=== PATIENT | female | born 1985 | race American Indian/Alaskan Native ===

== ENCOUNTER 2020-06-29 15:52 | Emergency (ER) | payer MEDICAID ==
[2020-06-29 15:58] VITALS: BP 121/79
[2020-06-29] MEDS ORDERED: diphenhydrAMINE 50 MG/ML VIAL IV ONE (18:19)
[2020-06-29] MEDS ORDERED: SODIUM CHLORIDE 0.9% 1000 ML 1,000 ML IV ONE (18:19)
[2020-06-29] MEDS ORDERED: METOCLOPRAMIDE 10 MG/2 ML INJ IV ONE (18:19)
--- NOTE | 2020-06-29 19:29 | Emergency Department Report ---
ED General Adult HPI - General Chief complaint: Nausea/Vomiting/Diarrhea Stated complaint: 6 WEEKS , VOMITING Time Seen by Provider: 06/29/20 18:12 Source: patient Mode of arrival: Ambulatory Limitations: No Limitations - History of Present Illness Initial comments: Patient is a 35-year-old female presents emergency room with complaints of nause a and vomiting that began 3 days ago. She states that she has not been able to tolerate p.o. intake. Patient states that she is currently 6 weeks . She states that she has had her confirmed through the health department and the resource clinic. She states that she has her first appointment with [facility] on July 04. She denies any vaginal bleeding, abdominal pain, dysuria, diarrhea, fever. She does not report any vaginal discharge or irritation. She denies any sick contacts. She denies any past medical history. She states has an allergy to penicillin. She states her last menstrual cycle was May 08. /P: 2/A: 1 - Related Data Previous Rx's Medication Instructions Recorded Last Taken Type Metoclopramide [Reglan] 10 mg PO Q8HR PRN #12 tab 06/29/20 Unknown Rx cephALEXin [Keflex] 500 mg PO BID 7 Days #14 cap 06/29/20 Unknown Rx diphenhydrAMINE [Benadryl CAP] 25 mg PO Q6HR PRN #12 capsule 06/29/20 Unknown Rx Allergies Allergy/AdvReac Type Severity Reaction Status Date / Time No Known Allergies Allergy Unverified 06/29/20 15:59 ED Review of Systems ROS: Stated complaint: 6 WEEKS , VOMITING Other details as noted in HPI Comment: All other systems reviewed and negative ED Past Medical Hx - Past Medical History Previous Medical History?: No - Surgical History Past Surgical History?: Yes Additional Surgical History: D&C - Medications Home Medications: Home Medications Medication Instructions Recorded Confirmed Last Taken Type Metoclopramide [Reglan] 10 mg PO Q8HR PRN #12 tab 06/29/20 Unknown Rx cephALEXin [Keflex] 500 mg PO BID 7 Days #14 cap 06/29/20 Unknown Rx diphenhydrAMINE [Benadryl CAP] 25 mg PO Q6HR PRN #12 capsule 06/29/20 Unknown Rx ED Physical Exam - General Limitations: No Limitations General appearance: alert, in no apparent distress - Head Head exam: Present: atraumatic, normocephalic - Eye Eye exam: Present: normal appearance - ENT ENT exam: Present: mucous membranes moist - Respiratory Respiratory exam: Present: normal lung sounds bilaterally. Absent: respiratory distress, wheezes, rales, rhonchi, stridor, chest wall tenderness, accessory muscle use, decreased breath sounds, prolonged expiratory - Cardiovascular Cardiovascular Exam: Present: regular rate, normal rhythm, normal heart sounds. Absent: systolic murmur, diastolic murmur, rubs, gallop - GI/Abdominal GI/Abdominal exam: Present: soft, normal bowel sounds. Absent: distended, tenderness, guarding, rebound, rigid - Neurological Exam Neurological exam: Present: alert, oriented X3 - Psychiatric Psychiatric exam: Present: normal affect, normal mood - Skin Skin exam: Present: warm, dry, intact ED Course Vital Signs 06/29/20 15:58 Temperature 99.3 F Pulse Rate 79 Respiratory 16 Rate Blood Pressure 121/79 [Right] O2 Sat by Pulse 100 Oximetry ED Medical Decision Making - Medical Decision Making Patient is a 35-year-old female presents emergency room with complaints of nausea and vomiting that began 3 days ago. She states that she has not been able to tolerate p.o. intake. Patient states that she is currently 6 weeks . She states that she has had her confirmed through the health department and the resource clinic. She states that she has her first appointment with [facility] on July 04. She denies any vaginal bleeding, abdominal pain, dysuria, diarrhea, fever. She does not report any vaginal discharge or irritation. She denies any sick contacts. She denies any past medical history. She states has an allergy to penicillin. She states her last menstrual cycle was May 08. /P: 2/A: 1. vitals are normal. on exam: no abd ttp, no guarding, no rebound, no rigidity. I was informed at 7:30 PM that the lab was not able to see orders, nothing in the computer was crossing over to the lab, I ordered patient's lab work at 6:19 PM. The elementary school counselor advised me that she collected the lab work at 1930. I called the lab at 2030 and he states that he has not yet run the lab work or the urine sample. labs are stable. UA shows evidence of mild UTI. pt given IVF and anti-emetics and symptoms significantly improved. pt was able to tolerate PO intake. Discussed all results with patient and answered questions. Patient given prescription for Keflex, Reglan, Benadryl. Advised patient Please take medication as prescribed. Increase your water intake. Please follow-up with your MEASURER MACHINE. Return to emergency room for any new or worsening symptoms. - Differential Diagnosis hyperemesis, UTI, morning sickness, dehydration, TSERING Critical care attestation.: If time is entered above; I have spent that time in minutes in the direct care of this critically ill patient, excluding procedure time. ED Disposition Clinical Impression: Nausea/vomiting in UTI (urinary tract infection) Qualifiers: Urinary tract infection type: acute cystitis Hematuria presence: without hematuria Qualified Code(s): N30.00 - Acute cystitis without hematuria Disposition: TO HOME OR SELFCARE Is pt being admited?: No Does the pt Need Aspirin: No Condition: Stable Instructions: Hyperemesis Gravidarum (ED), Urinary Tract Infection in Women (ED), Acute Nausea and Vomiting (ED) Additional Instructions: Please take medication as prescribed. Increase your water intake. Please follow-up with your MEASURER MACHINE. Return to emergency room for any new or worsening symptoms. Prescriptions: diphenhydrAMINE [Benadryl CAP] 25 mg PO Q6HR PRN #12 capsule PRN Reason: Nausea And Vomiting cephALEXin [Keflex] 500 mg PO BID 7 Days #14 cap Metoclopramide [Reglan] 10 mg PO Q8HR PRN #12 tab PRN Reason: Nausea And Vomiting Referrals: PRIMARY CARE, [Primary Care Provider] - 2-3 Days [facility] [Provider Group] - 2-3 Days Time of Disposition: 21:15 Print Language: VINCENTIAN
[2020-06-29] MEDS ORDERED: ONDANSETRON 4 MG/2 ML INJ IV ONE (21:19)
[2020-06-29 21:39] LABS: Alanine Aminotransferase 16 units/L (7-56); Albumin 4.2 g/dL (3.9-5); BUN/Creatinine Ratio 10; Blood Urea Nitrogen 6 mg/dL (7-17); Calcium 8.4 mg/dL (8.4-10.2); Hemolysis Index 3
[2020-06-29 23:31] LABS: Hematocrit 33.1 % (30.3-42.9); Hemoglobin 11.3 gm/dl (10.1-14.3); Mean Corpuscular HGB Conc 34 % (30-34); Mean Corpuscular Volume 87 fl (79-97); Platelet Count 299 K/mm3 (140-440); Red Blood Count 3.79 M/mm3 (3.65-5.03); Red Cell Distribution Width 13.6 % (13.2-15.2)
[2020-06-29 23:32] LABS: Basophils % (Auto) 0.3 % (0.0-1.8); Eosinophils # (Auto) 0.1 K/mm3 (0.0-0.4); Eosinophils % (Auto) 1.1 % (0.0-4.3); Lymphocytes # (Auto) 1.4 K/mm3 (1.2-5.4); Lymphocytes % (Auto) 16.4 % (13.4-35.0); Monocytes # (Auto) 0.7 K/mm3 (0.0-0.8); Monocytes % (Auto) 7.8 % (0.0-7.3)
== END 2020-06-29 21:32 | disposition home or self-care (01) ==
LOC: ED 15:52
DX: O23.41 Unspecified infection of urinary tract in pregnancy, first trimester (principal); O21.8 Other vomiting complicating pregnancy; Z3A.01 Less than 8 weeks gestation of pregnancy; Z98.890 Other specified postprocedural states; Z79.899 Other long term (current) drug therapy
CPT/HCPCS: 36415; 80053; 83690; 84702; 85025; 87086; 96361; 96374; 96375; 99283; J1200; J2405; J2765; J7030; 87076; 87186

== ENCOUNTER 2020-11-09 10:18 | Outpatient (CLI) | payer MEDICAID ==
[2020-11-09 11:40] VITALS: BP 112/57
== END 2020-11-09 11:45 | disposition home or self-care (01) ==
LOC: TRG 10:18 → APU 10:20 → TRG 11:45
PROVIDERS: ATTEND Obstetrics & Gynecology
DX: O12.02 Gestational edema, second trimester (principal); Z3A.23 23 weeks gestation of pregnancy
CPT/HCPCS: 59025

== ENCOUNTER 2020-12-02 18:39 | Observation (INO) | payer MEDICAID ==
[2020-12-03 06:24] VITALS: BP 121/70
== END 2020-12-03 06:54 | disposition left against medical advice (07) ==
LOC: TRG 18:39 → LD 18:50
PROVIDERS: ADMIT Obstetrics & Gynecology; ATTEND Obstetrics & Gynecology
DX: O13.3 Gestational [pregnancy-induced] hypertension without significant proteinuria, third trimester (principal); Z3A.29 29 weeks gestation of pregnancy; Z98.891 History of uterine scar from previous surgery
CPT/HCPCS: 59025; G0378

== ENCOUNTER 2021-01-18 16:11 | Inpatient (IN) | payer MEDICAID ==
[2021-01-18] MEDS ORDERED: LACTATED RINGERS 2,000 ML ONE (17:14)
[2021-01-18] MEDS ORDERED: OXYTOCIN DRIP 30,000 MILLIUNITS/500 ML BAG IV ONE (17:14)
[2021-01-18] MEDS: LACTATED RINGERS 1,000 ML IV SCH (17:17)
[2021-01-18] MEDS ORDERED: FAMOTIDINE 20 MG/2 ML INJ IV ONE (17:26)
[2021-01-18] MEDS ORDERED: METOCLOPRAMIDE 10 MG/2 ML INJ IV ONE (17:26)
[2021-01-18] MEDS ORDERED: BICITRA ORAL LIQD 30ML PO ONE (17:26)
--- NOTE | 2021-01-18 17:57 | Anesthesia Day of Surgery ---
Anesthesia Day of Surgery - Day of Surgery Patient Examined: Yes Patient H&P Reviewed: Yes Patient is NPO: Yes Beta Blockers: Yes Cardiac Clearance: No Pulmonary Clearance: No Fernando's Test: N/A
[2021-01-18 17:59] LABS: Basophils % (Auto) 0.5 % (0.0-1.8); Eosinophils % (Auto) 0.5 % (0.0-4.3); Hematocrit 37.5 % (30.3-42.9); Hemoglobin 13.2 gm/dl (10.1-14.3); Lymphocytes # (Auto) 1.5 K/mm3 (1.2-5.4); Lymphocytes % (Auto) 16.4 % (13.4-35.0); Mean Corpuscular HGB Conc 35 % (30-34); Mean Corpuscular Volume 86 fl (79-97); Monocytes # (Auto) 0.9 K/mm3 (0.0-0.8); Monocytes % (Auto) 10.1 % (0.0-7.3); Platelet Count 239 K/mm3 (140-440); Red Blood Count 4.38 M/mm3 (3.65-5.03)
[2021-01-18] MEDS ORDERED: GENTAMICIN/NS 120MG/100ML 120 MG/100 ML BAG IV NR (17:59)
[2021-01-18] MEDS ORDERED: OXYTOCIN DRIP 30 UNITS/500 ML BAG IV SCH (18:00)
[2021-01-18] MEDS ORDERED: ceFAZolin/Water 2 GM/20 ML 2 GM/20 ML SYRINGE IV NR (18:00)
[2021-01-18] MEDS ORDERED: ONDANSETRON 4 MG/2 ML INJ IV PRN (18:01)
[2021-01-18] MEDS ORDERED: NALOXONE 0.4 MG/1 ML INJ IV PRN (18:01)
[2021-01-18] MEDS ORDERED: HYDROmorphone 1 MG/1 ML INJ IV PRN (18:01)
--- NOTE | 2021-01-18 18:01 | Anesthesia Consultation ---
Anesthesia Consult and Med Hx Date of service: 01/18/21 - Airway Anesthetic Teeth Evaluation: Good, Poor ROM Head & Neck: Adequate Mental/Hyoid Distance: Adequate Mallampati Class: Class III Intubation Access Assessment: Probably Good - Pulmonary Exam CTA: Yes - Cardiac Exam Cardiac Exam: RRR - Pre-Operative Health Status ASA Pre-Surgery Classification: ASA3 Proposed Anesthetic Plan: Spinal - Pre-Anesthesia Comment Pre-Anesthesia Comments: csection x2 2008, 2012, D/C, teeth extraction - Pulmonary Hx Smoking: Yes (quit 1yr) Hx Asthma: No Hx Respiratory Symptoms: No SOB: Yes (with ) COPD: No Home Oxygen Therapy: No Hx Pneumonia: No Hx Sleep Apnea: No - Cardiovascular System Hx Hypertension: Yes (2012) Hx Coronary Artery Disease: No Hx Heart Attack/AMI: No Hx Angina: No Hx Percutaneous Transluminal Coronary Angioplasty (PTCA): No Hx Cardia Arrhythmia: No Hx Pacemaker: No Hx Internal Defibrillator: No Hx Valvular Heart Disease: No Hx Heart Murmur: No Hx Peripheral Vascular Disease: No - Central Nervous System Hx Neuromuscular Disorder: No Hx Seizures: No CVA: No Hx Back Pain: Yes Hx Psychiatric Problems: No - Gastrointestinal Hx Ulcer: No Hx Gastroesophageal Reflux Disease: Yes - Endocrine Hx Renal Disease: No Hx End Stage Renal Disease: No Hx Cirrhosis: No Hx Liver Disease: No Hx Insulin Dependent Diabetes: No Hx Non-Insulin Dependent Diabetes: No Hx Thyroid Disease: No Hx Hypothyroidism: No Hx Hyperthyroidism: No - Hematic Hx Anemia: Yes Hx Sickle Cell Disease: Yes (Trait) - Other Systems Hx Alcohol Use: No Hx Substance Use: No Hx Cancer: No Hx Obesity: Yes
[2021-01-18] MEDS ORDERED: ONDANSETRON 4 MG/2 ML INJ ONE ×2 (18:12)
[2021-01-18] MEDS ORDERED: MAGNESIUM SULFATE 4 GM/100 ML BAG IV ONE ×2 (18:17→20:50)
--- NOTE | 2021-01-18 18:23 | History and Physical Report ---
History of Present Illness Date of admission: 01/18/21 16:11 Chief complaint: PreEclampsia with SF History of present illness: 36yo at 36w3d presents from [facility] for delivery. complicated by gHTN-elevations noted at outpatient evaluation with the addition of persistent headache precluded the recommendation to proceed with delivery. also complicated by morbid obesity, anemia, sickle cell trait, macrosomia and prior delivery x2. On evaluation she denies headache, RUQ pain, changes to vision. She has no complaints. 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 Family/Genetic History: none Social history: no significant social history - Obstetrical History Expected Date of Delivery: 02/12/21 Actual Gestation: 36 Week(s) 3 Day(s) : 3 Medications and Allergies Allergies Allergy/AdvReac Type Severity Reaction Status Date / Time Penicillins Allergy Rash Verified 11/09/20 11:54 Home Medications Medication Instructions Recorded Confirmed Last Taken Type One Daily Tablet 1 tab PO DAILY 01/18/21 01/18/21 01/18/21 History Active Meds: Active Medications Hydromorphone HCl (Hydromorphone 1 Mg/1 Ml Inj) 0.5 mg IV Q5M PRN PRN Reason: BREAK Stop: 01/18/21 23:59 Lactated Ringer's (Lactated Ringers) 1,000 mls @ 2,250 mls/hr IV PREOP HAILEE Stop: 01/19/21 17:57 Last Admin: 01/18/21 17:17 Dose: 999 mls/hr Documented by: Oxytocin/Sodium Chloride (Pitocin/Ns 30 Unit/500ml) 30 units in 500 mls @ 0 mls/hr IV TITR HAILEE; Protocol Clindamycin HCl (Cleocin 900 Mg/50 Ml) 900 mg in 50 mls @ 100 mls/hr IV PREOP NR; Protocol Stop: 01/18/21 23:59 Last Admin: 01/18/21 18:10 Dose: 100 mls/hr Documented by: Gentamicin Sulfate/Sodium Chloride (Gentamicin/Ns 120mg/100ml) 120 mg in 100 mls @ 200 mls/hr IV PREOP NR; Protocol Stop: 01/18/21 23:59 Magnesium Sulfate (Magnesium Sulfate 40gm/1000ml) 40 gm in 1,000 mls @ 50 mls/hr IV DIRECT HAILEE Magnesium Sulfate (Magnesium Sulfate 4gm/100ml) 4 gm in 100 mls @ 300 mls/hr IV ONCE ONE Stop: 01/18/21 18:36 Naloxone HCl (Naloxone 0.4 Mg/1 Ml Inj) 0.2 mg IV Q2MIN PRN PRN Reason: Res Rate </= 8 or 02 SAT < 92% Ondansetron HCl (Ondansetron 4 Mg/2 Ml Inj) 4 mg IV Q8H PRN PRN Reason: Nausea And Vomiting Sodium Chloride (Sodium Chloride 0.9% 10 Ml Flush Syringe) 10 ml IV PRN NR Stop: 01/19/21 18:59 Review of Systems Constitutional: no fever, no chills Cardiovascular: no chest pain, no syncope, no shortness of breath Respiratory: no cough, no shortness of breath, no dyspnea on exertion Gastrointestinal: no abdominal pain - Vital Signs Vital signs: Vital Signs Pulse BP 90 137/93 01/18/21 16:59 01/18/21 16:59 Temp Pulse Resp BP Pulse Ox 98.8 F 85 18 144/84 01/18/21 17:18 01/18/21 18:15 01/18/21 17:18 01/18/21 18:15 - Physical Exam Breasts: Positive: deferred Cardiovascular: Regular rate Lungs: Positive: Clear to auscultation Abdomen: Positive: normal appearance, other (obese). Negative: distention, tenderness, guarding Genitourinary (Female): Positive: normal external genitalia Uterus: Positive: enlarged Extremities: Positive: normal - Obstetrical FHR: category 1 Uterine Contraction Monitor Mode: External Cervical Dilatation: 0 Uterine Contraction Pattern: Absent Results Result Diagrams: 01/18/21 17:10 Abnormal lab results 01/18/21 Range/Units 17:10 [place] % (Auto) 10.1 H (0.0-7.3) % [place] # (Auto) 0.9 H (0.0-0.8) K/mm3 Seg Neutrophils % 72.5 H (40.0-70.0) % All other labs normal. 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 - Patient Problems (1) Severe preeclampsia Current Visit: Yes Status: Acute Plan to address problem: -hx of preeclampsia with previous -gHTN this , now with persistent LUNDBERG -delivery recommended by [facility] for seizure prophylaxis, continue for 24 hours PP PNC: per [facility] -labs reviewed on chart O+/ABneg/HIV HepB-C neg/RPRNR/GC-CT neg/GBS positive (2) Previous delivery affecting Current Visit: Yes Status: Acute Plan to address problem: Prior x 2 -repeat CD (3) Anemia Current Visit: Yes Status: Acute Plan to address problem: -Type and cross (4) Sickle cell trait Current Visit: Yes Status: Acute (5) Genital herpes Current Visit: Yes Status: Acute (6) GBS (group B Streptococcus carrier), +RV culture, currently Current Visit: Yes Status: Acute
[2021-01-18] MEDS ORDERED: WATER FOR IRRIG STERILE 1,500 ML BOTTLE IR ONE (19:00)
[2021-01-18] MEDS ORDERED: SODIUM CHLORIDE 0.9% IRR 1,500 ML BOTTLE IR ONE (19:00)
[2021-01-18] MEDS ORDERED: BUPIVACAINE/PF (0.5%) 5 MG/1 ML 30 ML VIAL INFILTRATI ONE (19:03)
[2021-01-18] MEDS ORDERED: dexAMETHasone 20 MG/5 ML VIAL ONE (19:03)
[2021-01-18] MEDS ORDERED: SODIUM CHLORIDE 0.9% 100 ML ONE (19:05)
--- NOTE | 2021-01-18 20:37 | Operative Report ---
Operative Report Operative Report: Preoperative diagnosis: 1. Intrauterine at 36w3d 2. PreEclampsia with Severe Features 3. Prior Delivery x 2 4. Macrosomia 5. Morbid Obesity 6. Sickle Cell Trait 7. HSV II Postoperative diagnosis: Same Procedure: Repeat low transverse section Surgeon: Dr. Shahriar Mcbride EBL: 600cc Urine output: 400 mL IV fluids: 800 mL Findings: Viable male in cephalic presentation, weight 9 lbs. 13.8 oz. 4475g Apgars 8 and 9. Otherwise normal pelvic anatomy Specimens: Placenta Complications: None Indications: The patient was sent to [facility] directly from [facility] outpatient evaluation due to concern for PreEclampsia with SF, with the recommendation to proceed with delivery. Due to her history of prior delivery x 2, the recommendation was to proceed with repeat delivery. The risks, benefits, alternatives and indications for the procedure was reviewed, all questions answered, the patient expressed understanding and informed consent was obtained to proceed. Procedure: The patient was admitted to the OR with IV running and in place. She was givin clindamycin/gentamicin prior to the start of the procedure secondary to PCN allergy. She was prepped and draped in the normal sterile fashion in the supine position with a leftward tilt. An Allis test was used to confirm adequate anesthesia. Once confirmed, the incision was made with the scalpel and carried to the underlying fascia using the scalpel and the Bovie. Dense fascial scarring was noted. The fascia was incised in the midline and incision was extended bilaterally using the bovie and curved Rider scissors. The fascia was then dissected from the underlying rectus muscles in a series of sharp and blunt dissection using the Rider scissors. Muscles were in the in the midline and the peritoneum was entered into bluntly using the surgeon's fingers. An Clayton retractor was inserted. A bladder blade was then placed into the incision to protect the bladder. Following this the bladder flap was created. Hysterotomy incision was then made with the scalpel. Upon uterine entry, the amniotic sac was ruptured with copious clear fluid. The vacuum was applied to the ahead, appropriate suction was created and gentle traction applied. The vacuum was removed and reapplied once at the appropriate point of flexion. Suction was reapplied, and gentle traction applied. The was then delivered. His mouth and nose were suctioned on the field. The cord was clamped and cut and he was handed to the waiting NICU personnel. The uterus was cleared of all clots and debris. The hysterotomy incision was then closed in a running locked fashion using 0 monocryl, this was reapproximated with a second layer using the same suture via imbrication. Hemabate was placed on the incison. Reinspection was signficant for bleeding in the midline. This was repaired with a figure of eight stitch using 0 monocryl. Reinspection was significant for adequate hemostasis. Surgicel was placed over the incision. The clayton retractor was removed. The peritoneum was reapproximated using a 2-0 Vicryl. The fascia was closed in a running fashion using 0 PDS II with two sutures beginning at the lateral margins and tied together in the midline. The subcutaneous layer was reapproximated in 2 layers using a 0 followed by a 2-0 vicryl. Skin was closed in a running fashion using 4-0 Monocryl. The sponge lap needle and instrument counts were correct 2. The patient tolerated the procedure well. She was taken to recovery in stable condition. The magnesium was initiated in the PACU to be continued for 24 hours PP.
--- NOTE | 2021-01-18 21:32 | Progress Note ---
Spinal Anesthesia Block - Spinal Anesthesia Block Start Time: 18:36 Stop Time: 18:43 Performed by:: RAQUEL SANCHEZ Procedure: Patient IDed, H&P reviewed, all questions and concerns were answered, and consent was signed. Timeout was performed at bedside. Patient in sitting position. Sterile prep and drape was performed. [3] ml of 1% lidocaine skin wheal at L[3]- L [4]. Needle introducer advanced. 25 gauge spinal needle advanced. Clear, free flowing CSF. negative blood, negative paresthesia. Spinal dose given. All needles removed. Patient tolerated procedure.
--- NOTE | 2021-01-18 21:33 | Progress Note ---
Objective - Constitutional Vitals: Vital Signs - 12hr 01/18/21 01/18/21 01/18/21 16:59 17:18 17:32 Temperature 98.8 F Pulse Rate 90 91 H Respiratory 18 Rate Blood Pressure 137/93 138/86 01/18/21 01/18/21 01/18/21 17:46 18:01 18:15 Temperature Pulse Rate 84 85 85 Respiratory Rate Blood Pressure 128/74 143/76 144/84 - Labs CBC & Chem 7: 01/18/21 17:10 Labs: Abnormal lab results 01/18/21 Range/Units 17:10 MCHC 35 H (30-34) % RDW 16.0 H (13.2-15.2) % [place] % (Auto) 10.1 H (0.0-7.3) % [place] # (Auto) 0.9 H (0.0-0.8) K/mm3 Seg Neutrophils % 72.5 H (40.0-70.0) % Regional Anesthesia Block - Regional Anesthesia Block Start Time: 21:04 Stop Time: 21:08 Performed By:: RAQUEL SANCHEZ Procedure: Patient consented for TAP block for post surgical pain management. Patient identified, monitors placed, and time out performed. TAP identified bilaterally via ultrasound. Skin prepped bilaterally with [chlorhexidine] and [22g stimuplex] needle advanced to the TAP. [Marcaine 0.22% 35ml] injected under ultrasound guidance on the [left] side. [Marcaine 0.22% 35ml] injected under ultrasound guidance on the [right] side. Negative aspiration every 5mL, No change in heart rate or rhythm. Patient tolerated the procedure well. No apparent complications seen.
[2021-01-18] MEDS: MAGNESIUM SULFATE 40GM/1000ML 40 GM/1,000 ML BAG IV SCH (22:06)
[2021-01-18] MEDS ORDERED: oxyCODONE /ACETAMINOPHEN 5-325MG TAB PO PRN (23:21)
[2021-01-19] MEDS: IBUPROFEN 600 MG TAB PO SCH ×4 (00:40→18:46)
[2021-01-19] MEDS ORDERED: HYDROmorphone 1 MG/1 ML INJ IM PRN (00:51)
[2021-01-19] MEDS ORDERED: HYDROmorphone 1 MG/1 ML INJ IV PRN (01:28)
[2021-01-19] MEDS ORDERED: diphenhydrAMINE 50 MG/ML VIAL IV PRN (01:38)
[2021-01-19] MEDS: LACTATED RINGERS 1,000 ML IV SCH (03:23)
--- NOTE | 2021-01-19 08:29 | Progress Note ---
Assessment and Plan - Patient Problems (1) Previous delivery affecting Current Visit: Yes Status: Acute Plan to address problem: patient is completing magnesium therapy routine postop Subjective - Subjective Date of service: 01/19/21 Interval history: Patient without complaints. Desires to start clear diet. Pain well controlled Patient reports: appetite normal : doing well Objective - Vital Signs Latest vital signs: Vital Signs Temp Pulse Resp BP BP Pulse Ox 01/19/21 08:24 89 97 01/19/21 08:19 95 H 97 01/19/21 08:14 89 98 01/19/21 08:09 86 98 01/19/21 08:05 84 139/78 01/19/21 08:04 89 99 01/19/21 07:59 86 98 01/19/21 07:54 84 97 01/19/21 07:50 90 126/65 01/19/21 07:49 89 97 01/19/21 07:48 84 131/77 01/19/21 07:44 98.8 F 88 18 131/77 98 01/19/21 07:39 96 H 98 01/19/21 07:34 86 98 01/19/21 07:29 71 98 01/19/21 07:24 82 98 01/19/21 07:23 93 H 143/94 01/19/21 07:19 100 H 99 01/19/21 07:18 90 93 01/19/21 07:14 81 97 01/19/21 07:09 86 98 01/19/21 07:06 91 H 160/82 01/19/21 07:04 86 98 01/19/21 06:59 88 98 01/19/21 06:54 79 97 01/19/21 06:51 88 150/79 01/19/21 06:49 89 98 01/19/21 06:44 95 H 97 01/19/21 06:39 89 97 01/19/21 06:36 87 148/74 01/19/21 06:34 97 H 96 01/19/21 06:29 98 H 98 01/19/21 06:24 88 97 01/19/21 06:21 93 H 157/103 01/19/21 06:19 94 H 97 01/19/21 06:14 71 96 01/19/21 06:09 90 98 01/19/21 06:06 90 162/94 01/19/21 06:04 84 96 01/19/21 05:59 93 H 96 01/19/21 05:54 91 H 98 01/19/21 05:49 91 H 97 01/19/21 05:44 87 98 01/19/21 05:39 84 98 01/19/21 05:34 73 97 01/19/21 05:32 73 94 01/19/21 05:29 77 96 01/19/21 05:24 76 96 01/19/21 05:23 78 94 01/19/21 05:20 75 130/61 01/19/21 05:19 87 97 01/19/21 05:14 89 96 01/19/21 05:09 81 97 01/19/21 05:06 98.7 F 75 130/61 01/19/21 05:05 84 129/63 94 01/19/21 05:04 80 96 01/19/21 05:00 74 92 01/19/21 04:59 72 95 01/19/21 04:54 77 94 01/19/21 04:53 80 92 01/19/21 04:50 82 139/72 01/19/21 04:49 82 95 01/19/21 04:47 81 93 01/19/21 04:44 79 96 01/19/21 04:39 75 96 01/19/21 04:36 78 141/79 01/19/21 04:34 80 95 01/19/21 04:31 79 94 01/19/21 04:29 75 96 01/19/21 04:26 91 H 94 01/19/21 04:24 80 96 01/19/21 04:20 74 118/58 01/19/21 04:19 77 96 01/19/21 04:14 78 96 01/19/21 04:09 77 95 01/19/21 04:05 73 114/58 01/19/21 04:04 76 97 01/19/21 03:59 74 97 01/19/21 03:54 75 97 01/19/21 03:53 82 94 01/19/21 03:51 68 130/66 01/19/21 03:49 76 96 01/19/21 03:44 97 H 98 01/19/21 03:39 92 H 97 01/19/21 03:36 111 H 128/66 01/19/21 03:34 95 H 96 01/19/21 03:29 89 97 01/19/21 03:24 91 H 97 01/19/21 03:20 77 127/72 01/19/21 03:19 92 H 97 01/19/21 03:14 78 96 01/19/21 03:09 91 H 96 01/19/21 03:05 74 135/72 94 01/19/21 03:04 72 95 01/19/21 03:00 17 01/19/21 02:59 85 99 01/19/21 02:54 81 97 01/19/21 02:50 76 142/79 01/19/21 02:49 81 96 01/19/21 02:44 84 97 01/19/21 02:39 91 H 97 01/19/21 02:35 80 148/86 01/19/21 02:34 75 97 01/19/21 02:29 93 H 96 01/19/21 02:24 91 H 97 01/19/21 02:21 93 H 150/78 01/19/21 02:19 89 97 01/19/21 02:14 102 H 96 01/19/21 02:09 78 96 01/19/21 02:06 88 126/58 01/19/21 02:04 99 H 97 01/19/21 02:00 18 01/19/21 01:58 93 H 97 01/19/21 01:53 95 H 98 01/19/21 01:51 84 130/69 01/19/21 01:48 88 97 01/19/21 01:43 89 97 01/19/21 01:38 111 H 96 01/19/21 01:33 84 96 01/19/21 01:28 90 98 01/19/21 01:23 84 97 01/19/21 01:20 83 124/69 01/19/21 01:18 102 H 98 01/19/21 01:13 92 H 98 01/19/21 01:08 83 96 01/19/21 01:06 79 128/86 01/19/21 01:05 79 93 01/19/21 01:03 82 98 01/19/21 01:00 80 14 94 01/19/21 00:58 85 98 01/19/21 00:53 93 H 97 01/19/21 00:51 83 135/91 01/19/21 00:48 74 97 01/19/21 00:44 80 146/91 01/19/21 00:43 76 97 01/19/21 00:38 88 98 01/19/21 00:35 77 133/72 01/19/21 00:33 87 98 01/19/21 00:28 86 97 01/19/21 00:23 84 98 01/19/21 00:21 79 143/86 01/19/21 00:18 85 98 01/19/21 00:13 81 98 01/19/21 00:08 88 98 01/19/21 00:03 87 97 01/19/21 00:00 99.0 F 18 115/64 01/18/21 23:58 93 H 98 01/18/21 23:53 84 96 01/18/21 23:50 79 115/64 01/18/21 23:48 78 96 01/18/21 23:43 90 97 01/18/21 23:38 85 96 01/18/21 23:37 81 94 01/18/21 23:35 84 124/66 01/18/21 23:33 86 97 01/18/21 23:28 90 97 01/18/21 23:24 81 94 01/18/21 23:23 82 97 01/18/21 23:20 83 109/77 01/18/21 23:18 81 97 01/18/21 23:13 83 97 01/18/21 23:08 94 H 97 01/18/21 23:05 86 127/74 01/18/21 23:03 94 H 96 01/18/21 23:02 89 94 01/18/21 23:00 16 96 01/18/21 22:58 98 H 95 01/18/21 22:56 93 H 93 01/18/21 22:53 93 H 95 01/18/21 21:43 85 18 125/53 97 01/18/21 21:28 85 18 128/62 97 01/18/21 21:13 85 18 118/59 97 01/18/21 20:58 71 18 112/57 97 01/18/21 20:53 65 16 108/58 97 01/18/21 20:48 97.5 F L 91 H 16 154/128 97 01/18/21 18:15 85 144/84 01/18/21 18:01 85 143/76 01/18/21 17:46 84 128/74 01/18/21 17:32 91 H 138/86 01/18/21 17:18 98.8 F 18 01/18/21 16:59 90 137/93 Intake and Output 01/18/21 01/19/21 01/19/21 22:59 06:59 14:59 Intake Total 1800 Output Total 400 3250 500 Balance 1400 -3250 -500 Intake: IV 1800 Lactated Ringers 1,000 ml 1000 @ 2250 mls/hr IV PREOP [facility] Rx#:[id number] Output: Urine 400 3250 500 Indwelling Catheter 3250 500 Other: Total, Output Amount 350 100 # Voids Indwelling Catheter 1 Weight 129.274 kg - Labs Labs: Abnormal lab results 01/18/21 01/19/21 Range/Units 17:10 06:04 MCHC 35 H (30-34) % RDW 16.0 H (13.2-15.2) % [place] % (Auto) 10.1 H (0.0-7.3) % [place] # (Auto) 0.9 H (0.0-0.8) K/mm3 Seg Neutrophils % 72.5 H (40.0-70.0) % Magnesium 4.60 H (1.7-2.3) mg/dL
--- NOTE | 2021-01-19 08:30 | Post Anesthesia Evaluation ---
- Post Anesthesia Evaluation Patient Participated: Yes Airway Patent: Yes Stable Respiratory Function: Yes Nausea/Vomiting: No Temp > 96.8F: Yes Pain Manageable: Yes Adequeate Hydration: Yes Anesthesia Complications: No Block Receding Appropriately: Yes Patient on Ventilator: No
[2021-01-19] MEDS: MAGNESIUM SULFATE 40GM/1000ML 40 GM/1,000 ML BAG IV SCH (18:27)
[2021-01-19] MEDS ORDERED: LANOLIN/ZINC/DIMETHICONE (LANSINOH) 7 GM TP PRN (23:19)
[2021-01-19] MEDS ORDERED: WITCH HAZEL/ GLYCERIN PAD TP PRN (23:19)
[2021-01-19] MEDS ORDERED: NALOXONE 0.4 MG/1 ML INJ IV PRN (23:19)
[2021-01-19] MEDS ORDERED: MORPHINE 4 MG/1 ML INJ IV PRN (23:20)
[2021-01-19] MEDS ORDERED: KETOROLAC 30 MG/1 ML INJ IV PRN (23:20)
[2021-01-20] MEDS ORDERED: oxyCODONE /ACETAMINOPHEN 5-325MG TAB PO PRN (00:52)
[2021-01-20] MEDS ORDERED: IBUPROFEN 600 MG TAB PO PRN ×2 (00:53→07:30)
--- NOTE | 2021-01-20 08:00 | Progress Note ---
Assessment and Plan A: POD#2 s/p repeat section at 36 wks Preeclampsia with severe features s/p magnesium sulfate for 24 hours Morbid Obesity P: Continue routine postoperative care Anticipate discharge tomorrow Subjective - Subjective Date of service: 01/20/21 Principal diagnosis: s/p repeat , preeclampsia with severe features, morbid obesity Interval history: Pt doing well today. + flatus. No bowel movement yet. Patient reports: appetite normal, voiding normally, pain well controlled, flatus, ambulating normally, no bowel movement : in NICU Objective - Vital Signs Latest vital signs: Vital Signs Temp Pulse Resp BP BP Pulse Ox 01/20/21 00:00 98.2 F 98 H 17 119/85 98 01/19/21 23:45 98 H 119/85 01/19/21 22:51 95 H 143/80 01/19/21 22:36 100 H 139/83 01/19/21 22:21 93 H 138/86 01/19/21 22:06 86 138/84 01/19/21 21:57 109 H 135/85 01/19/21 21:40 97.7 F 01/19/21 21:36 92 H 146/92 01/19/21 21:34 97 H 99 01/19/21 21:29 113 H 98 01/19/21 21:24 121 H 97 01/19/21 21:21 100 H 114/58 01/19/21 21:19 98 H 97 01/19/21 21:14 110 H 98 01/19/21 21:09 99 H 97 01/19/21 21:06 97 H 115/53 01/19/21 21:04 110 H 96 01/19/21 20:59 103 H 97 01/19/21 20:54 100 H 98 01/19/21 20:51 101 H 140/60 01/19/21 20:49 102 H 98 01/19/21 20:44 109 H 97 01/19/21 20:39 103 H 98 01/19/21 20:36 107 H 141/76 01/19/21 20:34 105 H 97 01/19/21 20:30 97.8 F 18 01/19/21 20:29 111 H 98 01/19/21 20:24 103 H 97 01/19/21 20:21 105 H 141/75 01/19/21 20:19 104 H 97 01/19/21 20:14 102 H 98 01/19/21 20:09 99 H 98 01/19/21 20:06 101 H 152/73 01/19/21 20:04 92 H 98 01/19/21 19:59 96 H 98 01/19/21 19:54 93 H 98 01/19/21 19:51 95 H 153/79 01/19/21 19:49 94 H 97 01/19/21 19:44 113 H 98 01/19/21 19:39 98 H 97 01/19/21 19:36 99 H 153/82 01/19/21 19:34 95 H 99 01/19/21 19:29 102 H 98 01/19/21 19:26 99 H 0 L 01/19/21 19:24 102 H 98 01/19/21 19:21 110 H 157/87 01/19/21 19:19 111 H 99 01/19/21 19:14 100 H 97 01/19/21 19:09 86 99 01/19/21 19:06 87 144/84 01/19/21 19:04 75 99 01/19/21 18:59 84 99 01/19/21 18:54 84 97 01/19/21 18:51 95 H 140/72 01/19/21 18:49 87 97 01/19/21 18:44 99 H 96 01/19/21 18:39 92 H 98 01/19/21 18:36 83 145/76 01/19/21 18:34 85 97 01/19/21 18:30 92 H 155/96 01/19/21 18:29 85 96 01/19/21 18:24 77 96 01/19/21 18:19 75 96 01/19/21 18:14 92 H 97 01/19/21 18:09 84 97 01/19/21 18:06 75 139/69 01/19/21 18:04 78 96 01/19/21 18:02 76 94 01/19/21 17:59 82 95 01/19/21 17:57 84 93 01/19/21 17:54 80 96 01/19/21 17:51 83 149/89 01/19/21 17:49 86 98 01/19/21 17:44 85 95 01/19/21 17:39 85 95 01/19/21 17:38 80 94 01/19/21 17:35 84 125/65 01/19/21 17:34 79 97 01/19/21 17:31 106 H 94 01/19/21 17:29 89 96 01/19/21 17:24 84 96 01/19/21 17:21 83 117/64 01/19/21 17:19 99 H 98 01/19/21 17:14 88 98 01/19/21 17:09 89 97 01/19/21 17:06 93 H 129/61 01/19/21 17:04 88 98 01/19/21 16:59 83 100 01/19/21 16:54 84 96 01/19/21 16:51 91 H 144/64 01/19/21 16:49 98 H 98 01/19/21 16:44 99 H 99 01/19/21 16:39 83 98 01/19/21 16:38 106 H 93 01/19/21 16:35 93 H 133/59 01/19/21 16:34 99 H 98 01/19/21 16:29 86 98 01/19/21 16:24 98 H 98 01/19/21 16:21 92 H 124/57 01/19/21 16:19 84 100 01/19/21 16:14 87 100 01/19/21 16:09 87 98 01/19/21 16:06 81 137/61 01/19/21 16:04 85 99 01/19/21 15:59 87 97 01/19/21 15:54 90 98 01/19/21 15:50 85 141/65 01/19/21 15:49 83 99 01/19/21 15:44 88 98 01/19/21 15:39 78 98 01/19/21 15:36 86 120/58 01/19/21 15:34 78 98 01/19/21 15:29 92 H 97 01/19/21 15:24 85 97 01/19/21 15:20 89 125/62 01/19/21 15:19 92 H 97 01/19/21 15:14 91 H 97 01/19/21 15:09 95 H 97 01/19/21 15:06 82 125/58 01/19/21 15:04 86 98 01/19/21 14:59 81 96 01/19/21 14:58 82 93 04/22/21 14:54 89 96 01/19/21 14:50 82 122/65 01/19/21 14:49 86 97 01/19/21 14:44 77 98 01/19/21 14:39 81 97 01/19/21 14:35 75 132/73 01/19/21 14:34 76 99 01/19/21 14:29 92 H 97 01/19/21 14:24 84 97 01/19/21 14:20 86 129/72 01/19/21 14:19 90 99 01/19/21 14:14 100 H 99 01/19/21 14:09 83 98 01/19/21 14:05 80 120/69 01/19/21 14:04 87 99 01/19/21 13:59 79 97 01/19/21 13:54 74 98 01/19/21 13:51 81 129/73 01/19/21 13:49 83 98 01/19/21 13:44 89 97 01/19/21 13:39 75 98 01/19/21 13:36 75 138/78 01/19/21 13:34 77 97 01/19/21 13:29 81 98 01/19/21 13:24 84 98 01/19/21 13:21 84 114/59 01/19/21 13:19 76 97 01/19/21 13:14 81 97 01/19/21 13:09 85 98 01/19/21 13:06 84 162/67 01/19/21 13:04 77 97 01/19/21 13:00 98 01/19/21 12:59 85 99 01/19/21 12:54 84 100 01/19/21 12:51 98.8 F 78 16 137/63 137/63 99 01/19/21 12:49 72 98 01/19/21 12:44 72 99 01/19/21 12:39 84 98 01/19/21 12:36 77 149/68 01/19/21 12:34 82 98 01/19/21 12:29 88 97 01/19/21 12:24 82 98 01/19/21 12:19 88 98 01/19/21 12:14 80 98 01/19/21 12:09 73 97 01/19/21 12:05 75 148/88 01/19/21 12:04 78 96 01/19/21 11:59 69 97 01/19/ 11:54 73 98 01/19/ 11:50 78 140/78 01/19/21 11:49 75 97 01/19/21 11:44 77 97 01/19/ 11:39 75 98 01/19/21 11:35 85 128/78 01/19/ 11:34 74 98 01/19/21 11:29 80 98 01/19/21 11:24 73 96 01/19/21 11:22 85 94 01/19/21 11:20 78 123/70 01/19/21 11:19 75 98 01/19/21 11:14 70 94 01/19/21 11:09 78 95 01/19/21 11:05 66 121/73 01/19/21 11:04 67 96 01/19/21 11:03 89 94 01/19/21 10:59 91 H 95 01/19/21 10:54 74 94 01/19/21 10:53 75 92 01/19/21 10:50 73 119/71 01/19/ 10:49 71 97 01/19/21 10:46 67 94 01/19/ 10:44 71 97 01/19/21 10:39 72 96 01/19/21 10:35 79 124/74 93 01/19/21 10:34 71 95 01/19/21 10:29 70 94 01/19/ 10:24 73 97 01/19/21 10:23 68 94 01/19/21 10:20 93 H 123/74 01/19/21 10:19 72 98 01/19/21 10:14 71 92 01/19/ 10:09 70 96 01/19/21 10:05 67 124/72 01/19/21 10:04 78 95 01/19/ 10:01 73 94 01/19/ 09:59 73 96 01/19/ 09:55 76 94 01/19/ 09:54 71 95 22/21 09:51 69 129/72 01/19/21 09:50 70 94 01/19/21 09:49 76 95 01/19/ 09:44 78 97 01/19/21 09:39 73 97 01/19/21 09:36 84 155/66 01/19/21 09:34 76 99 01/19/21 09:30 78 94 01/19/21 09:29 72 96 01/19/21 09:24 69 97 01/19/21 09:21 73 126/71 01/19/21 09:19 70 94 01/19/21 09:14 67 96 01/19/21 09:12 71 92 01/19/21 09:09 86 96 01/19/21 09:06 71 108/52 01/19/21 09:04 68 93 01/19/21 08:59 70 96 01/19/21 08:54 76 96 01/19/21 08:50 68 127/72 01/19/21 08:49 69 95 01/19/21 08:45 94 H 92 01/19/21 08:44 74 96 01/19/21 08:39 76 96 01/19/21 08:37 82 94 01/19/21 08:36 73 127/75 01/19/21 08:34 82 98 01/19/21 08:29 80 98 01/19/21 08:24 89 97 01/19/21 08:19 95 H 97 01/19/21 08:14 89 98 01/19/21 08:09 86 98 01/19/21 08:05 84 139/78 01/19/21 08:04 89 99 01/19/21 07:59 86 98 Intake and Output 01/19/21 01/20/21 01/20/21 22:59 06:59 14:59 Intake Total 1514 Output Total 2650 Balance -1136 Intake: Oral 1514 Output: Urine 2650 Indwelling Catheter 2650 Other: Total, Intake Amount 360 Total, Output Amount 600 # Voids Indwelling Catheter 1 Void 1 - Exam Breasts: Present: deferred Abdomen: Present: soft (obese ) Uterus: Present: fundal height at umbilicus Extremities: Present: normal Incision: Present: dressed - Labs Labs: Abnormal lab results 01/19/21 Range/Units 17:48 Magnesium 5.20 H (1.7-2.3) mg/dL
[2021-01-20 11:06] LABS: Hematocrit 34.2 % (30.3-42.9); Hemoglobin 11.8 gm/dl (10.1-14.3)
[2021-01-20] MEDS: oxyCODONE /ACETAMINOPHEN 5-325MG TAB PO PRN ×2 (13:25→22:56)
[2021-01-20] MEDS: IBUPROFEN 800 MG TAB PO PRN (16:51)
[2021-01-20] MEDS: SIMETHICONE 80 MG CHEW TAB PO PRN (20:35)
[2021-01-21] MEDS: IBUPROFEN 800 MG TAB PO PRN (03:58)
[2021-01-21] MEDS: oxyCODONE /ACETAMINOPHEN 5-325MG TAB PO PRN ×2 (12:27→21:25)
[2021-01-21] MEDS: SIMETHICONE 80 MG CHEW TAB PO PRN (15:34)
--- NOTE | 2021-01-21 16:03 | Progress Note ---
Assessment and Plan A: POD#3 s/p repeat section at 36 wks Preeclampsia with severe features s/p magnesium sulfate for 24 hours Morbid Obesity Concerns for sleep apnea P: Discharge tonight, pt to room in with hopes of baby being discharged tomorrow Follow up in 1 wk for blood pressure check. Schedule PCP referral for sleep study at appt Subjective - Subjective Date of service: 01/21/21 Principal diagnosis: s/p repeat , preeclampsia with severe features, morbid obesity Interval history: Pt doing well today. + flatus.+ bowel movement today. Pt is hopeful her baby will be able to go home tomorrow. Pt does report that for the last two weeks, she has had episodes where she wakes up coughing and choking for air, but this only occurs when she is sleeping. Patient reports: appetite normal, voiding normally, pain well controlled, flatus, bowel movement, ambulating normally : in NICU Objective - Vital Signs Latest vital signs: Vital Signs Temp Pulse Resp BP BP Pulse Ox 01/21/21 07:40 98.3 F 85 18 132/70 89 01/21/21 04:58 18 01/21/21 04:01 98.0 F 70 16 140/90 98 01/21/21 03:58 20 01/21/21 00:13 98.0 F 94 H 18 132/75 95 01/20/21 23:56 18 01/20/21 22:56 20 01/20/21 22:02 86 154/92 01/20/21 21:02 98.0 F 86 18 154/92 96 01/20/21 16:55 98.8 F 80 20 134/83 97 Intake and Output 01/21/21 01/21/21 01/21/21 06:59 14:59 22:59 Intake Total 420 Balance 420 Intake: Intake, Free Water 420 Other: # Voids Void 1 - Exam Breasts: Present: deferred Abdomen: Present: soft (obese ) Extremities: Present: normal Incision: Present: intact
--- NOTE | 2021-01-21 16:07 | Discharge Summary ---
Providers - Providers Date of Admission: 01/18/21 16:11 Date of discharge: 01/21/21 Attending physician: ROSELYN SUAZO Primary care physician: ROSELYN SUAZO Hospitalization Reason for admission: other (Preeclampsia with severe features ) Delivery: Procedure: section, repeat low transverse Procedure details: Please see operative report Incision: intact Other procedures: none complications: none Discharge diagnosis: IUP at term delivered [place] baby: male Hospital course: Pt was admitted for repeat section for preeclampsia with severe features at 36 wks which she tolerated well. Her postoperative course was uncomplicated and she met discharge criteria on POD#3. She will follow up in office in 1 wk for BP check, and sleep study referral. Condition at discharge: Stable Disposition: DC-01 TO HOME OR SELFCARE - Discharge Diagnoses (1) delivery after section Status: Acute (2) Morbid obesity Status: Acute (3) Severe preeclampsia Status: Acute Qualifiers: Trimester: third trimester Qualified Code(s): O14.13 - Severe pre- eclampsia, third trimester (4) Previous delivery affecting Status: Acute (5) Severe preeclampsia Status: Acute Qualifiers: Trimester: third trimester Qualified Code(s): O14.13 - Severe pre- eclampsia, third trimester Plan - Discharge Medications Prescriptions: Ferrous Sulfate [Feosol 325 MG tab] 325 mg PO BID #60 tablet labetaloL [Labetalol 100mg TAB] 100 mg PO BID #60 tablet Ibuprofen [Motrin] 800 mg PO Q8HR PRN #30 tablet PRN Reason: Pain, Moderate (4-6) oxyCODONE /ACETAMINOPHEN [Percocet 5/325] 1 tab PO Q6HR PRN #40 tablet PRN Reason: Pain - Provider Discharge Summary Activity: routine, no sex for 6 weeks, no heavy lifting 4 weeks, no strenuous exercise Diet: routine Instructions: routine Additional instructions: [] Smoking cessation referral if applicable(refer to patient education folder for contact #) [] Refer to [facility] Booklet Call your doctor immediately for: * Fever > 100.5 * Heavy vaginal bleeding ( >1 pad per hour) * Severe persistent headache * Shortness of breath * Reddened, hot, painful area to leg or breast * Drainage or odor from incision. * Keep incision clean and dry at all times and follow doctor's instructions regarding bathing/showering - Follow up plan Follow up: ROSELYN SUAZO MD [Primary Care Provider] - 7 Days (Please schedule your son's circumcision before he is one month old. Please schedule a blood pressure check in one week. )
[2021-01-21 21:28] VITALS: BP 135/76
== END 2021-01-21 22:15 | disposition home or self-care (01) | DRG 765 ==
LOC: APU 16:11 → LD 20:45 → OB 01-20 00:07
PROVIDERS: ADMIT Obstetrics & Gynecology; ATTEND Obstetrics & Gynecology
PROC: 10D00Z1 Extraction of Products of Conception, Low, Open Approach (ICD-10-PCS; principal; 2021-01-18)
DX: O11.4 Pre-existing hypertension with pre-eclampsia, complicating childbirth (principal); O98.32 Other infections with a predominantly sexual mode of transmission complicating childbirth; O34.211 Maternal care for low transverse scar from previous cesarean delivery; O60.14X0 Preterm labor third trimester with preterm delivery third trimester, not applicable or unspecified; O99.02 Anemia complicating childbirth; O99.62 Diseases of the digestive system complicating childbirth; K21.9 Gastro-esophageal reflux disease without esophagitis; D57.3 Sickle-cell trait; A60.00 Herpesviral infection of urogenital system, unspecified; O99.820 Streptococcus B carrier state complicating pregnancy; Z20.822 Contact with and (suspected) exposure to COVID-19; O99.214 Obesity complicating childbirth; E66.01 Morbid (severe) obesity due to excess calories; Z37.0 Single live birth; Z3A.36 36 weeks gestation of pregnancy; Z87.891 Personal history of nicotine dependence; Z88.0 Allergy status to penicillin
CPT/HCPCS: 36415; 83735; 85014; 85018; 85025; 86850; 86900; 86901; G0378; J1100; J1170; J1580; J2405; J2765; J3475; J3490; J7120; U0003

== ENCOUNTER 2022-03-25 20:22 | Outpatient (CLI) | payer MEDICAID ==
[2022-03-25] MEDS ORDERED: hydrOXYzine HCL 100 MG/2 ML INJ IM SCH (20:32)
[2022-03-25 21:42] VITALS: BP 123/57
[2022-03-25] MEDS ORDERED: diphenhydrAMINE 50 MG/ML VIAL IV ONE (22:06)
== END 2022-03-25 23:19 | disposition home or self-care (01) ==
LOC: TRG 20:22 → LD 20:24 → TRG 23:19
PROVIDERS: ATTEND Obstetrics & Gynecology
DX: O99.712 Diseases of the skin and subcutaneous tissue complicating pregnancy, second trimester (principal); L50.9 Urticaria, unspecified; O26.892 Other specified pregnancy related conditions, second trimester; L29.9 Pruritus, unspecified; Z3A.20 20 weeks gestation of pregnancy
CPT/HCPCS: 96372; J3410